=== PATIENT | female | born 1985 | race African-American/Black ===

== ENCOUNTER 2017-02-18 22:39 | Observation (INO) | payer OTHER, MEDICAID ==
[~2017-02-18] VITALS: Ht 162.6 cm; Wt 97.1 kg
[~2017-02-18 22:39] MED LIST: IBUPROFEN
[2017-02-18] MEDS ORDERED: PREN-88 PO (23:02)
[2017-02-18 23:25] LABS: CLARITY URINE CLOUDY (CLEAR); COLOR URINE DARK YELLOW (YELLOW); GLUCOSE URINE NEGATIVE (NEGATIVE); KETONES URINE TRACE (NEGATIVE); LEUKOCYTE ESTERASE URINE NEGATIVE (NEGATIVE); NITRITE URINE NEGATIVE (NEGATIVE); OCCULT BLOOD URINE TRACE (NEGATIVE); PROTEIN URINE NEGATIVE (NEGATIVE); SPECIFIC GRAVITY URINE 1.034 (1.005-1.030)
[2017-02-18 23:49] LABS: SQUAMOUS EPITHELIAL CELL URINE 1+ /lpf (RARE/1+)
[2017-02-18 23:50] LABS: RBC URINE 0-2 /hpf (0-2)
[2017-02-18 23:51] LABS: BACTERIA URINE 1+; CALCIUM OXALATE CRYSTALS URINE 1+ /lpf
[2017-02-19] MEDS ORDERED: ACETAMINOPHEN 500MG TABLET PO NR
== END 2017-02-19 00:20 | disposition home or self-care (01) ==
LOC: L&D 22:39
PROVIDERS: ADMIT Obstetrics & Gynecology; ATTEND Obstetrics & Gynecology
DX: O26.892 Other specified pregnancy related conditions, second trimester (principal); R10.32 Left lower quadrant pain; Z3A.26 26 weeks gestation of pregnancy
CPT/HCPCS: 81001; 99281; G0378

== ENCOUNTER 2017-02-27 15:21 | Observation (INO) | payer OTHER, MEDICAID ==
[~2017-02-27] VITALS: Ht 162.6 cm; Wt 117.0 kg
[~2017-02-27 15:21] MED LIST changes: +PREN-88 PO
[2017-02-27] MEDS ORDERED: ACETAMINOPHEN 500MG TABLET PO NR (16:30)
[2017-02-27 16:51] LABS: CLARITY URINE CLOUDY (CLEAR); COLOR URINE YELLOW (YELLOW); GLUCOSE URINE NEGATIVE (NEGATIVE); KETONES URINE TRACE (NEGATIVE); LEUKOCYTE ESTERASE URINE TRACE (NEGATIVE); NITRITE URINE NEGATIVE (NEGATIVE); OCCULT BLOOD URINE NEGATIVE (NEGATIVE); PROTEIN URINE NEGATIVE (NEGATIVE); SPECIFIC GRAVITY URINE 1.028 (1.005-1.030)
[2017-02-27 16:52] LABS: BASOPHILS % 0.6 % (0.0-2.0); EOSINOPHILS % 1.1 % (0.0-5.0); HEMATOCRIT. 32.6 % (36.0-48.0); HEMOGLOBIN. 10.8 g/dL (12.0-16.0); LYMPHOCYTES % 19.3 % (20.0-50.0); MEAN CORPUSCULAR HEMOGLOBIN 29.5 pg (28.0-32.0); MEAN CORPUSCULAR VOLUME 89.3 fL (81.0-99.0); MONOCYTES % 7.9 % (2.0-8.0); NEUTROPHILS % 71.1 % (40.0-76.0); PLATELET 264 x1000/uL (130-400); RED BLOOD CELL COUNT 3.65 mill/uL (4.2-5.4); RED CELL DISTRIBUTION WIDTH 14.5 % (11.6-14.6); WHITE BLOOD COUNT 9.3 x1000/uL (4.5-11.0)
[2017-02-27 17:03] LABS: PROTHROMBIN TIME 10.5 sec
[2017-02-27 17:06] LABS: ALANINE AMINOTRANSFERASE 22 IU/L (13-61); ALBUMIN 2.7 g/dL (3.4-5.0); ANION GAP 12; CALCIUM 8.7 mg/dL (8.5-10.1); CARBON DIOXIDE 25 mEq/L (21-32); CHLORIDE 106 mEq/L (98-107); INDEX HEMOLYSI 1 (1-3); INDEX ICTERIC 1 (1-4); INDEX LIPEMIC 1 (1-3); UREA NITROGEN BLOOD 6 mg/dL (7-21); URIC ACID 2.3 mg/dL (2.6-7.2); eGFR > 60 mL/min (>60)
[2017-02-27 17:43] LABS: BACTERIA URINE 2+; RBC URINE 0-2 /hpf (0-2)
[2017-02-27 17:44] LABS: CALCIUM OXALATE CRYSTALS URINE 1+ /lpf
[2017-02-27 17:45] LABS: MUCUS URINE TRACE /lpf (< = 2+); SQUAMOUS EPITHELIAL CELL URINE 2+ /lpf (RARE/1+)
[2017-02-27] MEDS ORDERED: LACTATED RINGERS 1,000 ML IV SCH (18:00)
[2017-02-27] MEDS ORDERED: CEFAZOLIN 2,000 MG in DEXT 5% WATER 100 ML IV NR (18:00)
== END 2017-02-27 19:18 | disposition home or self-care (01) ==
LOC: L&D 15:21
PROVIDERS: ADMIT Obstetrics & Gynecology; ATTEND Obstetrics & Gynecology
DX: O26.899 Other specified pregnancy related conditions, unspecified trimester (principal); M54.9 Dorsalgia, unspecified; Z3A.00 Weeks of gestation of pregnancy not specified
CPT/HCPCS: 36415; 80053; 81001; 84550; 85025; 85384; 85610; 85730; 96360; 96365; 99281; G0378; J0690; J7120; J7060

== ENCOUNTER 2017-04-28 14:16 | Observation (INO) | payer OTHER, MEDICAID ==
[~2017-04-28] VITALS: Ht 162.6 cm; Wt 119.3 kg
[~2017-04-28 14:16] MED LIST changes: -IBUPROFEN
== END 2017-04-28 15:40 | disposition home or self-care (01) ==
LOC: L&D 14:16
PROVIDERS: ADMIT Obstetrics & Gynecology; ATTEND Obstetrics & Gynecology
DX: O12.03 Gestational edema, third trimester (principal); O26.893 Other specified pregnancy related conditions, third trimester; R51 Headache; Z3A.36 36 weeks gestation of pregnancy
CPT/HCPCS: G0378 ×2

== ENCOUNTER 2017-05-11 22:26 | Observation (INO) | payer OTHER, MEDICAID ==
[~2017-05-11] VITALS: Ht 162.6 cm; Wt 120.2 kg
[2017-05-11] MEDS ORDERED: LACTATED RINGERS 1,000 ML IV SCH (23:19)
[2017-05-11 23:59] LABS: CLARITY URINE CLEAR (CLEAR); COLOR URINE YELLOW (YELLOW); GLUCOSE URINE NEGATIVE (NEGATIVE); KETONES URINE TRACE (NEGATIVE); LEUKOCYTE ESTERASE URINE NEGATIVE (NEGATIVE); NITRITE URINE NEGATIVE (NEGATIVE); OCCULT BLOOD URINE TRACE (NEGATIVE); PROTEIN URINE NEGATIVE (NEGATIVE); SPECIFIC GRAVITY URINE 1.016 (1.005-1.030)
[2017-05-12 00:29] LABS: *AMPHETAMINES SCREEN URINE NEGATIVE (NEGATIVE); *BARBITURATES SCREEN URINE NEGATIVE (NEGATIVE); *BENZODIAZEPINES SCREEN URINE NEGATIVE (NEGATIVE); *COCAINE SCREEN URINE NEGATIVE (NEGATIVE); CANNABINOID URINE SCREEN NEGATIVE (NEGATIVE); METHADONE URINE SCREEN NEGATIVE (NEGATIVE); OPIATES URINE SCREEN NEGATIVE (NEGATIVE); PHENCYCLIDINE URINE SCREEN NEGATIVE (NEGATIVE)
== END 2017-05-12 00:50 | disposition home or self-care (01) ==
LOC: L&D 22:26
PROVIDERS: ADMIT Obstetrics & Gynecology; ATTEND Obstetrics & Gynecology
DX: O26.893 Other specified pregnancy related conditions, third trimester (principal); R10.9 Unspecified abdominal pain; Z3A.37 37 weeks gestation of pregnancy
CPT/HCPCS: 80305; 81001; 96360; 99281; G0378; J7120

== ENCOUNTER 2017-06-01 18:49 | Emergency (ER) | payer OTHER, MEDICAID ==
[~2017-06-01] VITALS: Ht 162.6 cm; Wt 112.0 kg
[2017-06-01 19:49] LABS: BASOPHILS % 0.7 % (0.0-2.0); HEMATOCRIT. 34.9 % (36.0-48.0); HEMOGLOBIN. 11.4 g/dL (12.0-16.0); LYMPHOCYTES % 47.1 % (20.0-50.0); MEAN CORPUSCULAR HEMOGLOBIN 29.4 pg (28.0-32.0); MEAN CORPUSCULAR VOLUME 89.8 fL (81.0-99.0); MEAN PLATELET VOLUME 7.6 fl (7.4-10.4); MONOCYTES % 5.8 % (2.0-8.0); NEUTROPHILS % 44.4 % (40.0-76.0); PLATELET 359 x1000/uL (130-400); RED BLOOD CELL COUNT 3.88 mill/uL (4.2-5.4); RED CELL DISTRIBUTION WIDTH 14.5 % (11.6-14.6)
[2017-06-01 19:53] LABS: CHLORIDE 103 mEq/L (98-107)
[2017-06-01 19:55] LABS: PARTIAL THROMBOPLASTIN TIME 26.1 sec (24.0-34.0); PROTHROMBIN TIME 10.6 sec
[2017-06-01 19:56] LABS: CARBON DIOXIDE 28 mEq/L (21-32)
[2017-06-01 20:04] LABS: B-HCG QUANTITATIVE 5 mIU/mL (<3); CREATINE KINASE 43 IU/L (26-192); CREATINE KINASE MB FRACTION < 0.5 ng/mL (0.5-3.6); TROPONIN I < 0.02 ng/mL (0.00-0.04)
[2017-06-01 20:10] LABS: CLARITY URINE CLEAR (CLEAR); COLOR URINE YELLOW (YELLOW); GLUCOSE URINE NEGATIVE (NEGATIVE); KETONES URINE NEGATIVE (NEGATIVE); LEUKOCYTE ESTERASE URINE 2+ (NEGATIVE); NITRITE URINE NEGATIVE (NEGATIVE); OCCULT BLOOD URINE 3+ (NEGATIVE); PROTEIN URINE NEGATIVE (NEGATIVE); SPECIFIC GRAVITY URINE 1.016 (1.005-1.030)
[2017-06-01] MEDS ORDERED: CEFAZOLIN 1000MG PREMIX 50 ML IV ONE (20:45)
[2017-06-01 23:00] VITALS: BP 128/69
== END 2017-06-01 23:20 | disposition home or self-care (01) ==
LOC: ER 19:53
DX: O90.89 Other complications of the puerperium, not elsewhere classified (principal); O86.20 Urinary tract infection following delivery, unspecified; R42 Dizziness and giddiness; R10.32 Left lower quadrant pain; R03.0 Elevated blood-pressure reading, without diagnosis of hypertension; O90.81 Anemia of the puerperium
CPT/HCPCS: 36415; 80053; 81001; 81025; 82550; 82553; 83605; 83690; 83880; 84484; 84702; 85025; 85610; 85730; 87040; 87086; 93005; 99285; Z7610

== ENCOUNTER 2018-06-16 19:32 | Emergency (ER) | payer MEDICAID, OTHER ==
[~2018-06-16] VITALS: Ht 162.6 cm; Wt 117.0 kg
[2018-06-16 21:30] VITALS: BP 129/79
[2018-06-17 00:58] LABS: CLARITY URINE CLEAR (CLEAR); COLOR URINE YELLOW (YELLOW); KETONES URINE NEGATIVE (NEGATIVE); LEUKOCYTE ESTERASE URINE NEGATIVE (NEGATIVE); NITRITE URINE POSITIVE (NEGATIVE); OCCULT BLOOD URINE NEGATIVE (NEGATIVE); PH URINE 5.5 (4.5-8.0); PROTEIN URINE NEGATIVE (NEGATIVE); SPECIFIC GRAVITY URINE 1.021 (1.005-1.030)
== END 2018-06-16 23:50 | disposition left against medical advice (07) ==
LOC: ER 19:32
DX: Z53.21 Procedure and treatment not carried out due to patient leaving prior to being seen by health care provider (principal)
CPT/HCPCS: 81003; 81025

== ENCOUNTER → 2020-09-08 | Outpatient (CLI) | payer BC | END | disposition home or self-care (01) | LOC: EDBD → L&DPROCDR 09:42 | PROVIDERS: ATTEND Obstetrics & Gynecology | DX: Z20.828 Contact with and (suspected) exposure to other viral communicable diseases (principal) | CPT/HCPCS: C9803; U0003 ==